=== PATIENT | male | born 1965 | race Caucasian/White ===

== ENCOUNTER 2016-09-21 08:26 | Emergency (ER) | payer OTHER ==
[2016-09-21 08:43] VITALS: BP 122/76; PULSE 63; RESP 16; TEMP 97.9; O2SAT 96
[2016-09-21] MEDS ORDERED: TDAP ADULT 0.5 ML INJ (BOOSTRIX) IM ONE (08:45)
--- NOTE | 2016-09-21 08:57 | UCPHY ---
H & P Time Seen by Provider: 09/21/16 08:41 Patient Type: New HPI/ROS: HPI Finger laceration. 51-year-old male by private vehicle. He is right-hand dominant. He was cutting up chickens last night when he accidentally cut his right dorsal aspect 3rd digit just over the PIP joint last night. He reports the wound is not closing. He reports some pain with flexion and extension in the PIP joint. He denies loss of flexor/extensor function of the finger. He denies loss of sensation in the finger. He cannot remember when his last tetanus shot was. No other injury or complaint. ROS: Constitutional: No fever, no chills. No weakness. Musculoskeletal: As above. Skin: As above Neurological: No focal weakness or altered sensation. Past medical history: No significant past medical history. Reports allergy to penicillin, rash, as a child. Social history: Here by himself. Nonsmoker. Physical Exam: General Appearance: Alert, no distress. This patient is responding to questions appropriately and in full sentences. This patient appears well- hydrated and well-nourished. Eyes: Pupils equal and round no pallor or injection. No lid edema, erythema or injection. Left hand exam: Significant for a linear, partial-thickness laceration through the epidermis and partial dermis measuring 1.5 cm across the dorsal aspect PIP joint 3rd digit flexor tendon function is intact both profundus and superficialis. Extensor tendon function is intact. The digit is neurovascularly intact. Please see wound care note for further details. No obvious pain on flexion/extension of the digit. Neurological: Motor sensory function is grossly intact. Cranial nerves are normal. Gait is normal. Skin: Warm and dry, no rashes. As above. Extremities are symmetrical. All joints range without pain or impingement. Psychiatric: No agitation. No depression. Database: EKG: Imaging: Procedures: Procedure: Laceration repair. Verbal consent was obtained from the patient. The 1.5 cm laceration on the left middle finger was anesthetized in the usual fashion. The wound was irrigated, draped and explored to its base with a gloved finger. There were no deep structures involved. No tendon injury was identified. No foreign body was identified. The wound was repaired with four, 5.0 Ethilon sutures placed in interrupted fashion. The wound repair was tolerated well and there were no complications. The procedure was performed by myself. Procedure: Splint placement. A aluminum finger splint was applied left middle finger after suture repair. After application of the splint I returned and re-examined the patient. The splint was adequately immobilizing the joint and distal to the splint the patient's circulation and sensation was intact. Emergency department course: I discussed x-ray imaging for to assess for bony/joint involvement. The patient refused this study. Tdap vaccination given. After suture repair is noted above wound care was discussed with the patient. Suture removal of follow -up reviewed. He is concerned about infection. Discussed giving him a prescription for Keflex to go home with. Signs of wound infection discussed. All of his questions were answered. He was discharged in good condition. Differential Diagnosis: The differential diagnosis on this patient includes but is not limited to laceration to left 2nd digit. Foreign body, significant neurovascular injury, joint involvement, tendon laceration unlikely. This represents a partial list of diagnoses considered. These considerations are based on history, physical exam, past history, reassessment and diagnostic testing. Smoking Status: Never smoked Constitutional: Initial Vital Signs Temperature (C) 36.6 C 09/21/16 08:35 Heart Rate 63 09/21/16 08:35 Respiratory Rate 16 09/21/16 08:35 Blood Pressure 122/76 H 09/21/16 08:35 O2 Sat (%) 96 09/21/16 08:35 O2 Delivery Mode Room Air Allergies/Adverse Reactions: Penicillins Allergy (Verified 09/21/16 08:41) Home Medications: Medication Instructions Recorded Cephalexin [Keflex (*)] 500 mg PO Q6 7 Days 09/21/16 Medical Decision Making - Data Points Medications Given: Discontinued Medications Diphtheria/Tetanus/Acell Pertussis (Boostrix) 0.5 ml IM .ONCE ONE Stop: 09/21/16 08:46 Last Admin: 09/21/16 08:55 Dose: 0.5 ml Departure - Departure Disposition: Home, Routine, Self-Care Clinical Impression: Laceration of middle finger Condition: Good Instructions: Finger Laceration (ED) Additional Instructions: Read and follow provided instructions. Sutures to be removed in 10 days. Follow-up with your primary care physician in 1-2 days for re-evaluation and wound check. Fill prescription for antibiotics, take as prescribed for signs of infection as listed below and with generalized instructions, return to Urgent Care see your primary care physician immediately for re-evaluation. Return to the emergency department for redness, swelling, fever, drainage of pus from the wound or other serious concerns. Prescriptions: Cephalexin [Keflex (*)] 500 mg PO Q6 7 Days - PQRS PQRS Measurement: Not applicable.
== END 2016-09-21 09:35 | disposition home or self-care (01) ==
LOC: CED 08:26
PROC: 0HQFXZZ Repair Right Hand Skin, External Approach (ICD-10-PCS; principal; 2016-09-21)
DX: S61.212A Laceration without foreign body of right middle finger without damage to nail, initial encounter (principal)
CPT/HCPCS: 12001-PO; 29130-PO; 99203-PO; G0463-PO